=== PATIENT | female | born 1965 | race Caucasian/White ===

== ENCOUNTER 2019-10-18 00:15 | Emergency (ER) | payer SELFPAY ==
[~2019-10-18] VITALS: Ht 152.4 cm; Wt 58.5 kg
[2019-10-18 00:25] VITALS: BP 132/74
--- NOTE | 2019-10-18 00:31 | NUR ---
AMB TO BED 08 STEADY GAIT
--- NOTE | 2019-10-18 00:35 | NUR ---
PT BIB SELF FOR C/O 04/16 PAIN STARTED IN RLQ X 5 DAYS AGO AND MOVED TO LLQ X 2 DAYS AGO. ADMITS TO NAUSEA BUT DENIES V/D. PT ABDOMEN IS SOFT, ROUND, AND TENDER UPON PALPATION IN LLQ. PT LAST BM WAS YESTERDAY IN THE MORNING. PT DENIES BLOOD IN STOOL. PT STATES BM WAS FORMED, SMALL, AND BROWN. PT DENIES COUGH, AFEBRILE. PT RESPIRATIONS ARE EVEN AND UNLABORED. SKIN IS WARM AND DRY TO TOUCH. PT RESTING IN BED SITTING UPRIGHT. AT BEDSIDE. MEDHX: DM ALLERGIES: NKA
--- NOTE | 2019-10-18 01:06 | NUR ---
DR DELGADILLO EVALUATING PT AT BEDSIDE
--- NOTE | 2019-10-18 01:39 | NUR ---
XRAY AT BEDSIDE. PT TRANSFERED BY W/C PT ABLE TO AMBULATE IN W/C WITHOUT ASSISTANCE.
[2019-10-18] MEDS ORDERED: KETOROLAC 60 MG/2 ML VIAL IM ONE (01:55)
--- NOTE | 2019-10-18 02:30 | NUR ---
PT STATES ABD PAIN REDUCED FROM 7/10 TO 4/10 IN LLQ. PT RESTING IN BED EYES OPEN AND SITTING UPRIGHT. RESPIRATIONS ARE EVEN AND UNLABORED. SKIN IS WARM AND DRY TO TOUCH. PT AT BEDSIDE.
--- NOTE | 2019-10-18 02:50 | NUR ---
Patient discharged with v/s stable. Written and verbal after care instructions given and explained. Patient alert, oriented and verbalized understanding of instructions. Ambulatory with steady gait. All questions addressed prior to discharge. ID band removed. Patient advised to follow up with PMD. Rx of MIRALAX POWDER, MINERAL OIL given. Patient educated on indication of medication including possible reaction and side effects. Opportunity to ask questions provided and answered.
[2019-10-18 02:58] VITALS: BP 128/83
== END 2019-10-18 02:50 | disposition home or self-care (01) ==
LOC: MED 00:15
DX: K59.00 Constipation, unspecified (principal); E11.9 Type 2 diabetes mellitus without complications
CPT/HCPCS: 74022; 82948; 96372; 99283; J1885